=== PATIENT | male | born 1965 | race Caucasian/White ===

== ENCOUNTER 2018-11-24 09:26 | Outpatient (CLI) | payer BC, SELFPAY ==
[2018-11-26 19:39] LABS: Infliximab 29 mcg/mL
== END 2018-11-24 09:46 ==
PROVIDERS: PCP Nurse Practitioner Family; Visit Provider Internal Medicine Gastroenterology
DX: Z79.899 Other long term (current) drug therapy (principal); K50.819 Crohn's disease of both small and large intestine with unspecified complications
CPT/HCPCS: 36415; 82397

== ENCOUNTER 2018-12-13 00:06 | Outpatient (CLI) | payer BC, SELFPAY ==
[2018-12-17 16:36] LABS: Infliximab 12 mcg/mL
== END 2018-12-13 00:26 ==
PROVIDERS: PCP Nurse Practitioner Family; Visit Provider Internal Medicine Gastroenterology
DX: K50.118 Crohn's disease of large intestine with other complication (principal); Z79.899 Other long term (current) drug therapy
CPT/HCPCS: 36415; 82397

== ENCOUNTER 2020-01-14 10:51 | Outpatient (CLI) | payer BC, SELFPAY ==
[2020-01-14 14:31] LABS: Abs Immature Grans 0.01 k/cumm (0.0-0.09); Absolute Basophil Count 0.03 k/cumm (0.0-0.2); Absolute Eosinophil Count 0.14 k/cumm (0.0-0.7); Absolute Monocyte Count 0.54 k/cumm (0.11-0.7); Absolute Neutrophil Count 4.97 k/cumm (1.2-6.7); Basophils % 0.4; Eosinophils % 1.9; HCT 43.2 % (40.0-50.0); HGB 14.9 g/dL (13.5-17.5); Immature Grans % 0.1 %; Mean Corp. HGB Concentration 34.5 g/dL (32.0-36.0); Mean Corpuscular Volume 89.8 fL (80-95); Mean Platelet Volume 10.1 fL (8.0-11.0); Monocytes % 7.3; Neutrophils % 67.3; Platelet Count 213 x1000/uL (130-400); RBC 4.81 m/cumm (4.50-6.00); RBC Distribution Width 12.9 % (11.8-14.1); White Blood Cell Count 7.39 k/cumm (4.4-10.8)
[2020-01-14 15:18] LABS: ALT 29 U/L (16-63); AST 19 U/L (15-37); Albumin 4.2 g/dL (3.4-5.0); Alkaline Phosphatase 51 U/L (46-116); Bilirubin, Direct 0.12 mg/dL (0.00-0.20); Bilirubin, Total 0.5 mg/dL (0.2-1.0); Total Protein 7.2 g/dL (6.4-8.2)
[2020-01-17 09:58] LABS: HBs Antibody, Quant <3.1 mIU/mL (See Note); Hepatitis B Surface Ab Negative (See Note); Hepatitis B Surface Ag Negative (Negative)
[2020-01-17 11:14] LABS: Hep B Core Antibody Negative (Negative)
[2020-01-19 14:59] LABS: TB Interpretation Negative (Negative)
== END 2020-01-14 11:11 ==
PROVIDERS: PCP Family Medicine; Visit Provider Internal Medicine Gastroenterology
DX: K50.118 Crohn's disease of large intestine with other complication (principal)
CPT/HCPCS: 36415; 80076; 86704; 86706; 87340; 85025; 86140; 86480; 87350

== ENCOUNTER 2020-10-30 02:44 | Outpatient (CLI) | payer BC, SELFPAY ==
[2020-10-30 12:14] LABS: Abs Immature Grans 0.02 10^3/uL (0.0-0.06); Absolute Basophil Count 0.04 10^3/uL (0.0-0.2); Absolute Eosinophil Count 0.14 10^3/uL (0.0-0.7); Absolute Lymphocyte Count 2.06 10^3/uL (1.2-3.4); Absolute Monocyte Count 0.59 10^3/uL (0.1-0.8); Absolute Neutrophil Count 4.05 10^3/uL (1.2-6.7); Basophils % 0.6; HGB 15.7 g/dL (13.5-17.5); Immature Grans % 0.3; Lymphocytes % 29.9; MCH 30.7 pg (27.0-33.0); MCHC 34.1 % (32.0-36.0); MPV 10.5 fL (8.0-11.0); Monocytes % 8.6; Neutrophils % 58.6; Nucleated RBC 0 %; Platelet Count 231 10^3/uL (130-400); RBC 5.11 10^6/uL (4.36-5.78); RDW-SD 39.8 fL
[2020-10-30 12:44] LABS: ALT 26 U/L (16-63); AST 19 U/L (15-37); Albumin 4.3 g/dL (3.4-5.0); Alkaline Phosphatase 59 U/L (46-116); Bilirubin, Direct 0.12 mg/dL (0.00-0.20); Bilirubin, Total 0.5 mg/dL (0.2-1.0); Total Protein 7.7 g/dL (6.4-8.2)
[2020-10-30 12:45] LABS: C-Reactive Protein < 0.05 mg/dL (0.0-0.3)
[2020-11-02 00:44] LABS: Infliximab 9.2 mcg/mL
== END 2020-10-30 03:04 ==
PROVIDERS: PCP Family Medicine; Visit Provider Internal Medicine Gastroenterology
DX: K50.118 Crohn's disease of large intestine with other complication (principal); K50.018 Crohn's disease of small intestine with other complication
CPT/HCPCS: 36415; 80076; 82397; 85025; 86140

== ENCOUNTER 2022-10-17 15:54 | Outpatient (CLI) | payer BC, SELFPAY ==
[2022-10-21 09:37] LABS: HBs Antibody, Quant <3.1 mIU/mL (See Note); Hepatitis B Surface Ab Negative (See Note)
[2022-10-21 09:49] LABS: Hepatitis B Surface Ag Negative (Negative)
[2022-10-21 10:32] LABS: Hep B Core Antibody Negative (Negative)
[2022-10-21 13:12] LABS: TB Interpretation Negative (Negative)
[2022-10-22 19:15] LABS: Infliximab 6.9 mcg/mL
== END 2022-10-17 15:55 | disposition home or self-care (01) ==
LOC: LBO 15:59
PROVIDERS: PCP Family Medicine; Visit Provider Internal Medicine Gastroenterology
DX: K50.018 Crohn's disease of small intestine with other complication (principal)
CPT/HCPCS: 36415; 82397; 86704; 86706; 87340; 86480

== ENCOUNTER 2023-07-24 04:26 | Outpatient (CLI) | payer BC, SELFPAY ==
[2023-07-25 09:29] LABS: HBs Antibody, Quant 3.4 mIU/mL (See Note); Hepatitis B Surface Ab Negative (See Note); Hepatitis B Surface Ag Negative (Negative)
[2023-07-28 12:09] LABS: TB Interpretation Negative (Negative)
== END 2023-07-24 04:27 | disposition home or self-care (01) ==
LOC: LBO 04:26
PROVIDERS: PCP Family Medicine; Visit Provider Internal Medicine Gastroenterology
DX: K50.018 Crohn's disease of small intestine with other complication (principal); Z79.899 Other long term (current) drug therapy; Z11.59 Encounter for screening for other viral diseases; Z01.84 Encounter for antibody response examination
CPT/HCPCS: 36415; 82397; 86706; 87340; 86480

== ENCOUNTER 2025-11-04 00:50 | Outpatient (CLI) | payer BC, SELFPAY ==
[2025-11-04 14:36] LABS: Abs Immature Grans 0.03 10^3/uL (0.0-0.06); HCT 44.2 % (40.0-50.0); HGB 14.8 g/dL (13.5-17.5); Immature Grans % 0.4 %; MCH 29.8 pg (27.0-33.0); MCHC 33.5 % (32.0-36.0); MCV 89 fL (80-95); MPV 10.4 fL (8.0-11.0); Platelet Count 232 10^3/uL (130-400); RBC 4.96 10^6/uL (4.36-5.78); RDW 12.3 % (11.8-14.1); RDW-SD 40.3 fL; WBC 8.31 10^3/uL (4.4-10.8)
[2025-11-04 15:28] LABS: C-Reactive Protein < 0.50 mg/dL (<=0.50)
[2025-11-04 15:31] LABS: ALT 22 U/L (10-49); AST 22 U/L (<34); Albumin 4.5 g/dL (3.2-5.0); Alkaline Phosphatase 68 U/L (46-116); Anion Gap 9.2 mmol/L (3-11); BUN 16 mg/dL (9-23); Bilirubin, Total 0.4 mg/dL (0.2-1.2); CO2 26.8 mmol/L (20.0-31.0); Calcium 9.2 mg/dL (8.3-10.6); Chloride 105 mmol/L (98-107); Glucose 86 mg/dL (74-106); Potassium 3.9 mmol/L (3.5-5.1); Sodium 141 mmol/L (136-145); Total Protein 7.8 g/dL (5.7-8.2)
[2025-11-04 15:33] LABS: Iron 78 ug/dL (65-175); Total Iron Binding Capacity 318 ug/dL (250-425); Transferrin Sat 25 % (20-55); Vitamin D 25 Total 26 ng/mL (30-100)
[2025-11-04 15:34] LABS: Ferritin 204 ng/mL (11-307)
[2025-11-04 22:11] LABS: HBs Antibody, Quant <3.1 mIU/mL (See Note); Hepatitis B Surface Ab Negative (See Note)
[2025-11-04 22:53] LABS: Hep B Core Antibody Negative (Negative)
[2025-11-07 13:15] LABS: TB Interpretation Negative (Negative); TB1 Ag minus Nil 0.01 IU/mL; TB2 Ag minus Nil 0.00 IU/mL
[2025-11-09 10:09] LABS: Infliximab 9.1 mcg/mL
== END 2025-11-04 00:51 | disposition home or self-care (01) ==
PROVIDERS: PCP Family Medicine; Visit Provider Internal Medicine Gastroenterology
DX: K50.018 Crohn's disease of small intestine with other complication (principal)
CPT/HCPCS: 36415; 80053; 82306; 82397; 86704; 86706; 87340; 82728; 83540; 83550; 85025; 86140; 86480